=== PATIENT | female | born 1990 | race Caucasian/White ===

== ENCOUNTER 2019-08-03 14:55 | Inpatient (IN) | payer OTHER ==
[~2019-08-03] VITALS: Ht 165.1 cm; Wt 76.2 kg
--- NOTE | 2019-08-03 16:13 | PR ---
[facility] [address] [place], [place] [address] Signed Progress Notes IP Datetime Report Generated by CPKarla: 08/03/2019 16:13 PROGRESS NOTES: [id number] Impression: Gest. HTN/PreEclampsia/Eclampsia Other Impressions: Oligohydramnios Procedures: Sterile Vag Exam Plan: Continue present management VITAL SIGNS: [id number] Vital Signs: Reviewed VS Notable Details: Severe range BPs improved EXAM: [id number] Dilatation: 1.5 Effacement: 60 Station: -3 Uterine Contractions: rare MEMBRANES: [id number] Membrane Status: Intact Comments: Pt seen and examined. Normal pelvic exam with normal / adequate pelvic outlet. No lesions, bleeding, or abnormal discharge. BPs improved s/p dose of Labetalol 40mg IV. Magnesium infusing. Pt denies LAMA, RUQ pain, or visual changes. US shows EFW 8#10 3899g, as well as oligohydramnios w/ LILIA 3.33cm and max vertical pocket 2.3cm. Pt not in active labor, with unfavorable cervix. Will continue sabilization and will discuss options for route of delivery. Fetus A: [id number] FHR Baseline: 120 Variability: Moderate 6-25bpm Accelerations: 15X15 Decelerations: None FHR Category: Category I Presentation: Vertex Comments on Fetus A: No evidence of metabolic acidosis Fetus B: [id number] Signing Physician: Ruchi Bonner DO Copies: ~ *Electronically Signed* 08/03/19 7501 RUCHI BONNER DO PATIENT NAME: MIMA SALEH PROGRESS NOTE DATE OF : 90 PHYSICIAN: RUCHI BONNER DO RPT #: [id number] REPORT IS CONFIDENTIAL AND NOT TO BE RELEASED WITHOUT AUTHORIZATION
--- NOTE | 2019-08-03 17:10 | PR ---
[facility] [address] [place], [place] [address] Signed Progress Notes IP Datetime Report Generated by MARIELA: 08/03/2019 17:10 PROGRESS NOTES: [id number] Impression: Gest. 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 Doing well. No LAMA, RUQ pain, or visual changes. No severe range BPs since last dose of labetalol. Pt tolerating magnesium well. Reviewed options for proceeding with delivery including trial of labor vs . Reviewed US findings including EFW, oligohydramnios, and vertex position. Recommended trial of vaginal delivery. FHT shows overall reassuring FHT but baseline has decreased since initation of mag. Recommended contraction stress prior to induction w/ cytotec. Pt understands and agrees. Fetus A: [id number] FHR Baseline: 110 Variability: Moderate 6-25bpm Accelerations: 15X15 Decelerations: None FHR Category: Category II Presentation: Vertex Comments on Fetus A: No evidence of metabolic acidosis Fetus B: [id number] Signing Physician: Ruchi D. Bonner, DO *Electronically Signed* 08/03/19 1710 BONNER,RUCHI Main DO PATIENT NAME: MIMA SALEH PROGRESS NOTE DATE OF : 90 PHYSICIAN: RUCHI BONNER DO RPT #: [id number] REPORT IS CONFIDENTIAL AND NOT TO BE RELEASED WITHOUT AUTHORIZATION [address] [place] [address] Signed Copies: ~ *Electronically Signed* 08/03/191709 BONNER,RUCHI Main DO PATIENT NAME: MIMA SALEH PROGRESS NOTE DATE OF : 90 PHYSICIAN: RUCHI BONNER DO RPT #: [id number] REPORT IS CONFIDENTIAL AND NOT TO BE RELEASED WITHOUT AUTHORIZATION
--- NOTE | 2019-08-03 18:57 | PR ---
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 Discussed results and recommended trial of vaginal delivery. Pt understands and agrees. Will proceed with cervical ripening IOL. Reviewed labs that demonstrate Pro/Creat ratio 0.9 c/w PreE with severe features. Normal AST/ALT, uric acid, Plts 217. Serum creat 0.69. Start cytotec per protocol Fetus A: [id number] FHR Baseline: 115 Variability: Moderate 6-25bpm Accelerations: 15X15 Decelerations: None FHR Category: Category I Presentation: Vertex Comments on Fetus A: No evidence of metabolic acidosis Fetus B: [id number] Signing Physician: Ruchi Bonner DO Copies: *Electronically Signed* 08/03/19 3000 RUCHI BONNER DO PATIENT NAME: MIMA SALEH PROGRESS NOTE DATE OF : 90 PHYSICIAN: RUCHI BONNER DO RPT #: [id number] REPORT IS CONFIDENTIAL AND NOT TO BE RELEASED WITHOUT AUTHORIZATION [address] [address] Signed ~ *Electronically Signed* 08/03/19 1857 RUCHI BONNER DO PATIENT NAME: MIMA SALEH PROGRESS NOTE DATE OF : 90 PHYSICIAN: RUCHI BONNER DO RPT #: [id number] REPORT IS CONFIDENTIAL AND NOT TO BE RELEASED WITHOUT AUTHORIZATION
--- NOTE | 2019-08-04 00:34 | PR ---
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 BPs well controlled and FHT reassuring. Pt resting comfortably. Prior LAMA has resolved with tylenol. Continue cervical ripening. Fetus A: [id number] FHR Baseline: 120 Variability: Minimal - Undetectable to <5bpm Accelerations: None Decelerations: None FHR Category: Category II Presentation: Vertex Comments on Fetus A: No evidence of metabolic acidosis Fetus B: [id number] Signing Physician: Ruchi Bonner DO Copies: ~ *Electronically Signed* 08/04/19 0033 RUCHI BONNER DO PATIENT NAME: MIMA SALEH PROGRESS NOTE DATE OF : 90 PHYSICIAN: RUCHI BONNER DO RPT #: [id number] REPORT IS CONFIDENTIAL AND NOT TO BE RELEASED WITHOUT AUTHORIZATION
--- NOTE | 2019-08-04 08:34 | PR ---
[facility] [address] [place], [place] [address] Signed Progress Notes IP Datetime Report Generated by MARIELA: 08/04/2019 08:34 PROGRESS NOTES: [id number] Impression: Reassuring heart rate; Gest. 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 SROM _1:30am with ctxs increasing in frequency and intensity. Pt requested epidural that was kindly placed by anesthesia. Pt now very comfortable w/ epidural in place. Slow progress noted and ctxs became more irregular, and low dose pitocin was started per protocol. Pt has now developed hypotension and c/o feeling somewhat lightheaded. FHT reassuring. Pt was given ephedrine 20mg IV with some improvement of BPs and symptoms. Discussed IUPC to help monitor augementation of labor with pitocin and patient consents. Sterile cervical exam performed and a large gush of clear amniotic fluid noted, possibly from a residual forebag. IUPC then placed without difficulty. Scalp stim resulted in acceleration. Will continue to monitor BPs closely. Pt denies LAMA, RUQ, or visual changes. Most recent labs normal and Magnesium therapeutic. HepC and HIV negative. All questions answered to best of my ability and to patient's apparent satisfaction. Fetus A: [id number] FHR Baseline: 110 Variability: Moderate 6-25bpm Accelerations: 15X15 Decelerations: None *Electronically Signed* 08/04/19833 RUCHI BONNER DO PATIENT NAME: MIMA SALEH PROGRESS NOTE DATE OF : 90 PHYSICIAN: RUCHI BONNER DO RPT #: [id number] REPORT IS CONFIDENTIAL AND NOT TO BE RELEASED WITHOUT AUTHORIZATION [facility] [address] [place], [place] [address] Signed FHR Category: Category I Presentation: Vertex Comments on Fetus A: No evidence of metabolic acidosis. Acceleration noted to sclap stim at time of IUPC placement Fetus B: [id number] Signing Physician: Ruchi Bonner DO Copies: ~ *Electronically Signed* 08/04/1934 RUCHI BONNER DO PATIENT NAME: MIMA SALEH PROGRESS NOTE DATE OF : 90 PHYSICIAN: RUCHI BONNER DO RPT #: [id number] REPORT IS CONFIDENTIAL AND NOT TO BE RELEASED WITHOUT AUTHORIZATION
--- NOTE | 2019-08-04 08:37 | PR ---
[facility] [address] [place], [place] [address] Signed Progress Notes IP Datetime Report Generated by MARIELA: 08/04/2019 08:37 PROGRESS NOTES: [id number] Impression: Reassuring heart rate; Gest. 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 Pitocin has not yet been started. Will start low dose pit per protocol for labor augmentation. Fetus A: [id number] FHR Baseline: 110 Variability: Moderate 6-25bpm Accelerations: 15X15 Decelerations: None FHR Category: Category I Presentation: Vertex Comments on Fetus A: No evidence of metabolic acidosis. Acceleration noted to sclap stim at time of IUPC placement Fetus B: [id number] Signing Physician: Ruchi Bonner DO Copies: *Electronically Signed* 08/04/19 0837 RUCHI BONNER DO PATIENT NAME: MIMA SALEH PROGRESS NOTE DATE OF : 90 PHYSICIAN: RUCHI BONNER DO RPT #: [id number] REPORT IS CONFIDENTIAL AND NOT TO BE RELEASED WITHOUT AUTHORIZATION [facility] [address] [place] [address] Signed ~ *Electronically Signed* 08/04/19 0837 RUCHI BONNER DO PATIENT NAME: MIMA SALEH PROGRESS NOTE DATE OF : 90 PHYSICIAN: RUCHI BONNER DO RPT #: [id number] REPORT IS CONFIDENTIAL AND NOT TO BE RELEASED WITHOUT AUTHORIZATION
--- NOTE | 2019-08-04 10:12 | PR ---
[facility] [address] [place], [place] [address] Signed Progress Notes IP Datetime Report Generated by MARIELA: 08/04/2019 10:12 PROGRESS NOTES: [id number] Impression: Reassuring heart rate; Gest. 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 Resting comfortably. Reviewed recent labs that confirm therapeutic magnesium levels and stable serologies. CTXs continue to be inadequate and pt is on low dose pitocin per protocol. FHT reassuring. All questions answered. Fetus A: [id number] FHR Baseline: 120 Variability: Moderate 6-25bpm Accelerations: None Decelerations: None FHR Category: Category I Presentation: Vertex Comments on Fetus A: No evidence of metabolic acidosis Fetus B: [id number] Signing Physician: Ruchi Bonner DO Copies: *Electronically Signed* 08/04/19 1012 RUCHI BONNER DO PATIENT NAME: MIMA SALEH PROGRESS NOTE DATE OF : 90 PHYSICIAN: RUCHI BONNER DO RPT #: [id number] REPORT IS CONFIDENTIAL AND NOT TO BE RELEASED WITHOUT AUTHORIZATION [address] [place], [place] [address] Signed ~ *Electronically Signed* 08/04/19 1012 RUCHI BONNER DO PATIENT NAME: MIMA SALEH PROGRESS NOTE DATE OF : 90 PHYSICIAN: RUCHI BONNER DO RPT #: [id number] REPORT IS CONFIDENTIAL AND NOT TO BE RELEASED WITHOUT AUTHORIZATION
--- NOTE | 2019-08-04 11:11 | PR ---
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 Doing well. No complaints. Contractions irregular but cervical change noted and station much lower. Will continue w/ pit per protocol and anticipate . BPs improved. All questions answered Fetus A: [id number] FHR Baseline: 150 Variability: Moderate 6-25bpm Accelerations: 10X10 Decelerations: Variable FHR Category: Category II Presentation: Vertex Comments on Fetus A: No evidence of metabolic acidosis Fetus B: [id number] Signing Physician: Ruchi Bonner DO Copies: *Electronically Signed* 08/04/19 1111 RUCHI BONNER DO PATIENT NAME: MIMA SALEH PROGRESS NOTE DATE OF : 90 PHYSICIAN: RUCHI BONNER DO RPT #: [id number] REPORT IS CONFIDENTIAL AND NOT TO BE RELEASED WITHOUT AUTHORIZATION [facility] [address] [place] [address] Signed ~ *Electronically Signed* 08/04/19 [facility] RUCHI BONNER DO PATIENT NAME: MIMA SALEH PROGRESS NOTE DATE OF : 90 PHYSICIAN: RUCHI BONNER DO RPT #: [id number] REPORT IS CONFIDENTIAL AND NOT TO BE RELEASED WITHOUT AUTHORIZATION
--- NOTE | 2019-08-04 15:16 | PR ---
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 Doing well. Comfortable w/ ctxs. BPs now 140s systolic. No LAMA, RUQ pain, or visual changes. Neuro exams normal per RN. Now 9cm. Anticipate soon. All questions answered Fetus A: [id number] FHR Baseline: 120 Variability: Moderate 6-25bpm Accelerations: 15X15 Decelerations: None FHR Category: Category I Presentation: Vertex Comments on Fetus A: No evidence of metabolic acidosis Fetus B: [id number] Signing Physician: Ruchi Bonner DO Copies: *Electronically Signed* 08/04/19 1516 RUCHI BONNER DO PATIENT NAME: MIMA SALEH PROGRESS NOTE DATE OF : 90 PHYSICIAN: RUCHI BONNER DO RPT #: [id number] REPORT IS CONFIDENTIAL AND NOT TO BE RELEASED WITHOUT AUTHORIZATION [address] [place], [place] [address] Signed ~ *Electronically Signed* 08/04/19 1516 RUCHI BONNER DO PATIENT NAME: MIMA SALEH PROGRESS NOTE DATE OF : 90 PHYSICIAN: RUCHI BONNER DO RPT #: [id number] REPORT IS CONFIDENTIAL AND NOT TO BE RELEASED WITHOUT AUTHORIZATION
--- NOTE | 2019-08-04 16:28 | PR ---
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 Re EXAM: [id number] Dilatation: 10.0 Effacement: 100 Station: 2 Uterine Contractions: q 2 minutes MEMBRANES: [id number] Membrane Status: Ruptured Amniotic Fluid Color: Clear Comments: Pt seen and examined. Pt c/o feeling tired and weak. She reports having "no energy" and being unable to "focus my eyes or even open them." Denies blurry vision. No chest pain or difficulty breathing. C/O low back pain, but denies contraction pain or pelvic pressure. Regular breathing effort and normal sats. HR normal. Heart sounds normal, and lungs are clear to ascultation bilaterally. UE reflexes 3+, but patellar reflexes now absent. Urine output has been somewhat diminished, and urine output in last hour is 25. Mag stopped and mag level ordered stat. Will hold calcium gluconate at this time. Pt now 10cm and +2 station. Will proceed with . Fetus A: [id number] FHR Baseline: 115 Variability: Moderate 6-25bpm Accelerations: 15X15 Decelerations: None FHR Category: Category I Presentation: Vertex Comments on Fetus A: No evidence of metabolic acidosis Fetus B: [id number] Signing Physician: Ruchi Bonner DO *Electronically Signed* 08/04/191627 RUCHI BONNER DO PATIENT NAME: MIMA SALEH PROGRESS NOTE DATE OF : 90 PHYSICIAN: RUCHI BONNER DO RPT #: [id number] REPORT IS CONFIDENTIAL AND NOT TO BE RELEASED WITHOUT AUTHORIZATION [address] [address] Signed Copies: ~ *Electronically Signed* 08/04/191627 RUCHI BONNER DO PATIENT NAME: MIMA SALEH PROGRESS NOTE DATE OF : 90 PHYSICIAN: RUCHI BONNER DO RPT #: [id number] REPORT IS CONFIDENTIAL AND NOT TO BE RELEASED WITHOUT AUTHORIZATION
--- NOTE | 2019-08-05 09:02 | PR ---
[facility] [address] [facility] [place], [place] [address] Signed PP Progress Notes Datetime Report Generated by CPKarla: 08/05/2019 09:02 SUBJECTIVE: [id number] Pain: Within normal limits Nausea/Vomiting: Denies Flatus: Yes Bowel Movement: No Vital Signs: M2382888 Vital Signs: Reviewed Notable Details: Afebrile this AM. normal HR. BPs not severe. Last febrile temp 100.8 @ 23:57. Tmax 102.0 followed 7 minutes later by 99.7 EXAM: [id number] Cardiovascular: Normal Respiratory: Normal Abdomen/Uterus: Normal Lochia: Normal Vulva/Perineum: Not Done Breasts: Not Done CVA Tenderness: Normal Extremities: Normal Incision: Not Applicable Progress: Not Applicable Exam Comments: Fundus firm U-2 nontender. Pt sitting up in chair in no apparent distress in apparent good health. Improved edema. No increased work of breathing IMPRESSION/PLAN/PROCEDURES: [id number] Progress Notes: Pt seen and examined. Pt appears to be much improved. Magnesium was d/c'd last night and not restarted. Pt was febrile last night but afebrile this morning and in no apparent distress. Exam normal. Awaiting AM labs. Lactic acid added. Signing Physician: Ruchi Bonner DO Copies: ~ *Electronically Signed* 08/05/19 09 RUCHI BONNER DO PATIENT NAME: MIMA MARCOS PROGRESS NOTE DATE OF : 90 PHYSICIAN: RUCHI BONNER DO RPT #: [id number] REPORT IS CONFIDENTIAL AND NOT TO BE RELEASED WITHOUT AUTHORIZATION
--- NOTE | 2019-08-05 10:13 | PR ---
[facility] [address] [place], [place] [address] Signed PP Progress Notes Datetime Report Generated by MARIELA: 08/05/2019 10:12 SUBJECTIVE: [id number] Pain: Within normal limits Nausea/Vomiting: Denies Flatus: Yes Bowel Movement: No Vital Signs: [id number] Vital Signs: Reviewed Notable Details: No severe range BPs, Continued afebrile EXAM: [id number] Cardiovascular: Normal Respiratory: Normal Abdomen/Uterus: Normal Lochia: Normal Vulva/Perineum: Normal Breasts: Not Done CVA Tenderness: Normal Extremities: Normal Incision: Not Applicable Progress: Not Applicable Exam Comments: Fundus again firm U-2 nontender. Bleeding normal with no malodorous discharge. Bimanual exam normal. Lungs clear and heart sounds normal. No obvious source of infection IMPRESSION/PLAN/PROCEDURES: [id number] Impression: Endometritis Plan: Antibiotic therapy Progress Notes: Pt again reports she is doing very well. No fevers/chills/pain. Bleeding light. Feeling much improved. Reviewed labs; Pt again w/ severely elevated WBC's. Lactic acid normal. Continued hyponatremia. Given fevers yesterday, continued leukocytosis, and no obvious source of infection, we will start antibiotic therapy with Amp / Gent / Clinda. Will restart Mag sulfate @ 1.5g / hr and plan to continue that until 24 hrs pp. Will continue cbc / cmp's q 8 hrs. Blood cultures will be drawn prior to abx therapy. Reviewed plan of care with patient. Also will consult internal medicine RE hyponatremia. Signing Physician: Ruchi Bonner DO Copies: *Electronically Signed* 08/05/19 1012 RUCHI BONNER DO PATIENT NAME: MIMA MARCOS PROGRESS NOTE DATE OF : 90 PHYSICIAN: RUCHI BONNER DO RPT #: [id number] REPORT IS CONFIDENTIAL AND NOT TO BE RELEASED WITHOUT AUTHORIZATION [address] [place] [address] Signed ~ *Electronically Signed* 08/05/191011 RUCHI BONNER DO PATIENT NAME: MIMA MARCOS PROGRESS NOTE DATE OF : 90 PHYSICIAN: RUCHI BONNER DO RPT #: [id number] REPORT IS CONFIDENTIAL AND NOT TO BE RELEASED WITHOUT AUTHORIZATION
--- NOTE | 2019-08-05 14:13 | PR ---
[facility] [address] [place], [place] [address] Signed PP Progress Notes Datetime Report Generated by MARIELA: 08/05/2019 14:13 SUBJECTIVE: [id number] Pain: Within normal limits Nausea/Vomiting: Denies Flatus: Yes Bowel Movement: No Vital Signs: [id number] Vital Signs: Reviewed Notable Details: Tachycardia 110's EXAM: [id number] Cardiovascular: Normal Respiratory: Normal Abdomen/Uterus: Normal Lochia: Normal Vulva/Perineum: Not Done Breasts: Not Done CVA Tenderness: Normal Extremities: Normal Incision: Not Applicable Progress: Not Applicable Exam Comments: Fundus firm nontender. Pt warm to the touch. Heart/lungs normal. Bilateral lower back paraspinal tenderness but no flank pain or tenderness to percussion. No cough, increased work or breathing. Large amount of clear yellow urine in luu cath IMPRESSION/PLAN/PROCEDURES: [id number] Impression: Endometritis Plan: Antibiotic therapy Progress Notes: Pt seen and examined. Pt became irritable and refused IV antibiotics from RN. I presented to room to discuss plan of care with patient. Pt with increased fever and heart rate. Excellent urine output. No LAMA, RUQ pain, or visual changes. No cough, chest pain, shortness of breath. Pt attributes symptoms to resumption of magnesium sulfate. Discussed side effects of magnesium and indications. Reviewed pt 21 hrs post delivery with now significant diuresis. Will stop magnesium. Pt agrees to continue IV abx as planned. All questions answered to best of my ability and to patient's apparent satisfaction. Continue NS but increase to 125cc/hr. Will monitor urine output and vitals closely. Signing Physician: Ruchi Bonner DO *Electronically Signed* 08/05/19 1413 RUCHI BONNER DO PATIENT NAME: MIMA MARCOS PROGRESS NOTE DATE OF : 90 PHYSICIAN: RUCHI BONNER DO RPT #: [id number] REPORT IS CONFIDENTIAL AND NOT TO BE RELEASED WITHOUT AUTHORIZATION [facility] [address] [place], [place] [address] Signed Copies: ~ *Electronically Signed* 08/05/19 1413 RUCHI BONNER DO PATIENT NAME: MIMA MARCOS PROGRESS NOTE DATE OF : 90 PHYSICIAN: RUCHI BONNER DO RPT #: [id number] REPORT IS CONFIDENTIAL AND NOT TO BE RELEASED WITHOUT AUTHORIZATION
--- NOTE | 2019-08-05 21:08 | PR ---
[facility] [address] [place], [place] [address] Signed PP Progress Notes Datetime Report Generated by MARIELA: 08/05/2019 21:08 SUBJECTIVE: [id number] Pain: Within normal limits Nausea/Vomiting: Denies Flatus: Yes Bowel Movement: No Vital Signs: [id number] Vital Signs: Reviewed; Within Normal Limits Notable Details: Last fever of 101.5 @ 13:15 EXAM: [id number] Cardiovascular: Normal Respiratory: Normal Abdomen/Uterus: Normal Lochia: Not Done Vulva/Perineum: Not Done Breasts: Not Done CVA Tenderness: Normal Extremities: Abnormal Incision: Not Applicable Progress: Not Applicable Exam Comments: Fundus firm U-2 nontender, Tachycardic, but heart and lung sounds otherwise normal. Legs with stable bilateral edema. IMPRESSION/PLAN/PROCEDURES: [id number] Impression: Endometritis Plan: Antibiotic therapy Progress Notes: Called back to patient's room as patient has been refusing vitals, labs, medicines, and evaluation by RN. Pt sitting on couch appearing comfortable with luu cath in place. Large amount of dilute urine noted. Pt in no acute distress. Reviewed current clinical scenario including improved leukocytosis, excellent urine output, and normal CXR. Reviewed elevated lactic acid and tachycardia which can be signs of sepsis. Discussed that although patient might be feeling significantly improved, she still is septic. Discussed the importance and reasons why monitoring, assessments including labs, and medications are required. Discussed that we may be able to condense labs into one nighttime and one morning draw. Pt agrees to this plan. Will start oral iron, increase diet to full, continue luu cath, and continue Abx until at least 24 hrs afebrile. Discussed acute blood loss anemia, and though while patient denies symptoms other than tachycardia, indications for iron replacement and possible blood transfusion. Pt understands and agrees. She feels that we are *Electronically Signed* 08/05/192107 RUCHI BONNER DO PATIENT NAME: HEMANTMIMA PROGRESS NOTE DATE OF : 90 PHYSICIAN: RUCHI BONNER DO RPT #: [id number] REPORT IS CONFIDENTIAL AND NOT TO BE RELEASED WITHOUT AUTHORIZATION [facility] [address] [place] [id number] Signed listening to her concerns and appreciates the thoroughness and quality of our care. Signing Physician: Ruchi Bonner DO Copies: ~ *Electronically Signed* 08/05/192107 RUCHI BONNER DO PATIENT NAME: MIMA MARCOS PROGRESS NOTE DATE OF : 90 PHYSICIAN: RUCHI BONNER DO RPT #: [id number] REPORT IS CONFIDENTIAL AND NOT TO BE RELEASED WITHOUT AUTHORIZATION
--- NOTE | 2019-08-05 23:49 | PR ---
[facility] [facility] [address] [place], [place] [address] Signed PP Progress Notes Datetime Report Generated by MARIELA: 08/05/2019 23:49 SUBJECTIVE: [id number] Pain: Within normal limits Nausea/Vomiting: Denies Flatus: Yes Bowel Movement: No Vital Signs: [id number] Vital Signs: Reviewed Notable Details: Afebrile, most recent HR 93. EXAM: [id number] Cardiovascular: Normal Respiratory: Normal Abdomen/Uterus: Normal Lochia: Not Done Vulva/Perineum: Not Done Breasts: Not Done CVA Tenderness: Normal Extremities: Abnormal Incision: Not Applicable Progress: Not Applicable Exam Comments: Pt refuses physical exam. Pt sitting comfortably on couch with boyfriend. No increased work of breathing. Pt agitated IMPRESSION/PLAN/PROCEDURES: [id number] Impression: Endometritis Other Impression: Acute blood loss anemia Plan: Antibiotic therapy Progress Notes: Pt seen and evaluated. Pt w/ Hgb 6.6. LFTs normal and Plts 146. Lactic acid improved at 2.5. WBCs 31. Continued good urine output. Recommended blood transfusion. Pt and boyfriend became very angry and are threatening to leave AMA. Pt states that "I am 29 yrs old and am healthy." Reviewed preeclampsia w/ pp blood loss, acute blood loss anemia, and sepsis / endometritis. Discussed improvements in patient's clinical picture with interventions. Pt and boyfriend continued to be very upset and he states "I think you are practicing malpractice." Offered to have Dr. Walker or Dr. Mathur provide second opinion. Pt is requesting her friend to be present to review and will not make decisions until she is present. Signing Physician: Ruchi Bonner DO *Electronically Signed* 08/05/199 RUCHI BONNER DO PATIENT NAME: HEMANTMIMA PROGRESS NOTE DATE OF : 90 PHYSICIAN: RUCHI BONNER DO RPT #: [id number] REPORT IS CONFIDENTIAL AND NOT TO BE RELEASED WITHOUT AUTHORIZATION [address] [place], [place] [address] Signed Copies: ~ *Electronically Signed* 08/05/19 2349 RUCHI BONNER DO PATIENT NAME: MIMA MARCOS PROGRESS NOTE DATE OF : 90 PHYSICIAN: RUCHI BONNER DO RPT #: [id number] REPORT IS CONFIDENTIAL AND NOT TO BE RELEASED WITHOUT AUTHORIZATION
--- NOTE | 2019-08-05 23:50 | PR ---
[facility] [address] [place], [place] [address] Signed PP Progress Notes Datetime Report Generated by MARIELA: 08/05/2019 23:50 SUBJECTIVE: [id number] Pain: Within normal limits Nausea/Vomiting: Denies Flatus: Yes Bowel Movement: No Vital Signs: [id number] Vital Signs: Reviewed Notable Details: Afebrile, most recent HR 93. EXAM: [id number] Cardiovascular: Normal Respiratory: Normal Abdomen/Uterus: Normal Lochia: Not Done Vulva/Perineum: Not Done Breasts: Not Done CVA Tenderness: Normal Extremities: Abnormal Incision: Not Applicable Progress: Not Applicable Exam Comments: Pt refuses physical exam. Pt sitting comfortably on couch with boyfriend. No increased work of breathing. Pt agitated IMPRESSION/PLAN/PROCEDURES: [id number] Impression: Endometritis Other Impression: Acute blood loss anemia Plan: Antibiotic therapy Progress Notes: Pt seen and evaluated. Pt w/ Hgb 6.6. LFTs normal and Plts 146. Lactic acid improved at 2.5. WBCs 31. Continued good urine output. Recommended blood transfusion. Pt and boyfriend became very angry and are threatening to leave AMA. Pt states that "I am 29 yrs old and am healthy." Reviewed preeclampsia w/ pp blood loss, acute blood loss anemia, and sepsis / endometritis. Discussed risks of leaving AMA including severe anemia, worsening sepsis, or . Discussed improvements in patient's clinical picture with interventions. Pt and boyfriend continued to be very upset and he states "I think you are practicing malpractice." Offered to have Dr. Walker or Dr. Mathur provide second opinion. Pt is requesting her friend to be present to review and will not make decisions until she is present. Signing Physician: Ruchi Bonner DO *Electronically Signed* 08/05/192349 RUCHI BONNER DO PATIENT NAME: HEMANTMIMA PROGRESS NOTE DATE OF : 90 PHYSICIAN: RUCHI BONNER DO RPT #: [id number] REPORT IS CONFIDENTIAL AND NOT TO BE RELEASED WITHOUT AUTHORIZATION [facility] [address] [place] [id number] Signed Copies: ~ *Electronically Signed* 08/05/192349 RUCHI BONNER DO PATIENT NAME: SYLVESTER MARCOSNDRIA PROGRESS NOTE DATE OF : 90 PHYSICIAN: RUCHI BONNER DO RPT #: [id number] REPORT IS CONFIDENTIAL AND NOT TO BE RELEASED WITHOUT AUTHORIZATION
--- NOTE | 2019-08-06 00:27 | PR ---
[facility] [address] [place], [place] [address] Signed PP Progress Notes Datetime Report Generated by CPKarla: 08/06/2019 00:27 SUBJECTIVE: [id number] Pain: Within normal limits Nausea/Vomiting: Denies Flatus: Yes Bowel Movement: No Vital Signs: [id number] Vital Signs: Reviewed Notable Details: Afebrile, most recent HR 93. EXAM: [id number] Cardiovascular: Normal Respiratory: Normal Abdomen/Uterus: Normal Lochia: Not Done Vulva/Perineum: Not Done Breasts: Not Done CVA Tenderness: Normal Extremities: Abnormal Incision: Not Applicable Progress: Not Applicable Exam Comments: Pt refuses physical exam. Pt sitting comfortably on couch with boyfriend. No increased work of breathing. Pt agitated IMPRESSION/PLAN/PROCEDURES: [id number] Impression: Endometritis Other Impression: Acute blood loss anemia Plan: Antibiotic therapy Progress Notes: Pt's friend Lori presented. Patient and her friend talked and patient now desires blood transfusion. We reviewed course of care and patient agrees to IV abx and laboratories as ordered. Will continue with plan of care. Pt desires nicotine patch. Signing Physician: Ruchi Bonner DO Copies: ~ *Electronically Signed* 08/06/19 0027 RUCHI BONNER DO PATIENT NAME: MIMA MARCOS PROGRESS NOTE DATE OF : 90 PHYSICIAN: RUCHI BONNER DO RPT #: [id number] REPORT IS CONFIDENTIAL AND NOT TO BE RELEASED WITHOUT AUTHORIZATION
--- NOTE | 2019-08-06 10:10 | PR ---
[facility] [facility] [address] [facility] [place], [place] [address] Signed PP Progress Notes Datetime Report Generated by MARIELA: 08/06/2019 10:10 SUBJECTIVE: [id number] Pain: Within normal limits Nausea/Vomiting: Denies Flatus: Yes Bowel Movement: No Vital Signs: [id number] Vital Signs: Reviewed Notable Details: Labile BPs this AM. EXAM: [id number] Cardiovascular: Normal Respiratory: Normal Abdomen/Uterus: Normal Lochia: Not Done Vulva/Perineum: Not Done Breasts: Not Done CVA Tenderness: Not Done Extremities: Abnormal Incision: Not Applicable Progress: Not Applicable Exam Comments: Pt laying on couch. Pt again quite irritable, but in no apparent distress. Concepcion draining clear yellow urine. Fundus firm. LE w/ stable bilateral edema. IMPRESSION/PLAN/PROCEDURES: [id number] Impression: Endometritis; Induced Hypertension Other Impression: Acute blood loss anemia Plan: Continue present management; Antibiotic therapy Progress Notes: Pt seen and evaluated. Reviewed improvement of labs s/p transfusion 2u PRBC. WBCs dec to 28.4, Hgb improved to 7.8 up from 6.6. Lactate resolved and now 1.3. LFTS normal, Creat 0.91, and sodium normal @ 136. Pt afebrile since 08/05/19 @ 13:15. Pt ambulating and tolerating full diet. Pain and lochia minimal. Bottlefeeding. Pt denies fevers this AM. Pt again irritable. Boyfriend was removed by security earlier this AM after getting in verbal confrontation w/ patient and RN. Pt requesting to "go outside for some fresh air" and again becomes angry when hospital policy explained. Discussed the importance of continued medical care and reviewed the clinical improvement she has shown. Reviewed preE and importance of close BP monitoring and control. Pt did have labile BPs this AM that are now improved w/ Procardia XL 30mg PO daily. Pt understands and agrees. Continue abx until pt *Electronically Signed* 08/06/19 1010 RUCHI BONNER DO PATIENT NAME: MIMA MARCOS PROGRESS NOTE DATE OF : 90 PHYSICIAN: RUCHI BONNER DO RPT #: [id number] REPORT IS CONFIDENTIAL AND NOT TO BE RELEASED WITHOUT AUTHORIZATION [facility] [address] [facility] [place] [address] Signed afebrile for 24 hrs. Repeat CBC and CMP in AM. All questions answered. Signing Physician: Ruchi Bonner DO Copies: ~ *Electronically Signed* 08/06/19 1010 RUCHI BONNER DO PATIENT NAME: MIMA MARCOS PROGRESS NOTE DATE OF : 90 PHYSICIAN: RUCHI BONNER DO RPT #: [id number] REPORT IS CONFIDENTIAL AND NOT TO BE RELEASED WITHOUT AUTHORIZATION
--- NOTE | 2019-08-07 10:11 | PR ---
[facility] [address] [place], [place] [address] Signed PP Progress Notes Datetime Report Generated by MARIELA: 08/07/2019 10:11 SUBJECTIVE: [id number] Pain: Within normal limits Nausea/Vomiting: Denies Flatus: Yes Bowel Movement: No Vital Signs: [id number] Vital Signs: Reviewed Notable Details: Labile BPs this AM. EXAM: [id number] Cardiovascular: Normal Respiratory: Normal Abdomen/Uterus: Abnormal Lochia: Normal Vulva/Perineum: Not Done Breasts: Not Done CVA Tenderness: Normal Extremities: Abnormal Incision: Not Applicable Progress: Not Applicable Exam Comments: Fundus firm U-2. Abd distended and tympanic. Normal bowel tones. No rebound or guarding and nontender. Extremities w/ stable bilateral edema. IMPRESSION/PLAN/PROCEDURES: [id number] Impression: Normal progression Other Impression: Acute blood loss anemia Plan: Continue present management Progress Notes: Pt seen and examined. Doing well. Ambulating and tolerating full diet. Bottlefeeding. Denies fevers/chills or other complaints. Afebrile since yesterday _1300. AM labs show improved WBCs no 20.0, Hgb 7.2 s/p 2u PRBC, and plts 122. Creat improved to 0.73, and LFTs normal. Pt denies LAMA, RUQ pain, or visual changes. No lightheadedness or dizziness. Good urine output. Pt did have severe range BPs overnight that required treatment w/ IV labetalol (20, 40, 80, and 80mg IV). Pt received additional dose of procardia XL 30mg. Will give Procardia XL 60mg daily. Will keep inpatient to monitor BPs and anemia. D/C abxs this afternoon. Reviewed plan of care w/ pt. All questions answered. Signing Physician: Ruchi Bonner DO *Electronically Signed* 08/07/19 1011 RUCHI BONNER DO PATIENT NAME: HEMANTMIMA PROGRESS NOTE DATE OF : 90 PHYSICIAN: RUCIH BONNER DO RPT #: [id number] REPORT IS CONFIDENTIAL AND NOT TO BE RELEASED WITHOUT AUTHORIZATION [address] [address] Signed Copies: ~ *Electronically Signed* 08/07/19 101 RUCHI BONNER DO PATIENT NAME: SYLVESTER MARCOSNDRIA PROGRESS NOTE DATE OF : 90 PHYSICIAN: RUCHI BONNER DO RPT #: [id number] REPORT IS CONFIDENTIAL AND NOT TO BE RELEASED WITHOUT AUTHORIZATION
--- NOTE | 2019-08-07 16:29 | PR ---
[facility] [address] [place], [place] [address] Signed PP Progress Notes Datetime Report Generated by MARIELA: 08/07/2019 16:29 SUBJECTIVE: [id number] Pain: Within normal limits Pain Comments: Breast tenderness Nausea/Vomiting: Denies Flatus: Yes Bowel Movement: No Vital Signs: [id number] Vital Signs: Reviewed Notable Details: Severe range BPs EXAM: [id number] Cardiovascular: Normal Respiratory: Normal Abdomen/Uterus: Normal Lochia: Normal Vulva/Perineum: Not Done Breasts: Not Done CVA Tenderness: Normal Extremities: Abnormal Incision: Not Applicable Progress: Not Applicable Exam Comments: Fundus Firm U-2 nontender. Stable bilateral LE edema. C/O breast tenderness w/ heart/lung exam. IMPRESSION/PLAN/PROCEDURES: [id number] Impression: Endometritis; Induced Hypertension Other Impression: Acute blood loss anemia Plan: Continue present management Progress Notes: Pt again febrile this afternoon following d/c IV abx (amp/gent/clinda); previous fever was yesterday @ 13:15. Pt states that she "feels much better." Did complain of some shortness of breath earlier today. Normal sats, and no increased dyspnea on exertion. Will check ECHO, EKG, CT angiogram. Possible fever could be caused by engorgement; pt is not . Blood cultures collected 08/05/19 are still pending. Will review case w/ internal medicine and w/ Dr. Cisse. Signing Physician: Ruchi Bonner DO Copies: *Electronically Signed* 08/07/19 1629 BONNER,RUCHI Main DO PATIENT NAME: MIMA MARCOS PROGRESS NOTE DATE OF : 90 PHYSICIAN: RUCHI BONNER DO RPT #: [id number] REPORT IS CONFIDENTIAL AND NOT TO BE RELEASED WITHOUT AUTHORIZATION [facility] [address] [place] [address] Signed ~ *Electronically Signed* 08/07/19 1629 BONNER,RUCHI Main DO PATIENT NAME: MIMA MARCOS PROGRESS NOTE DATE OF : 90 PHYSICIAN: BONNERRUCHI DO RPT #: [id number] REPORT IS CONFIDENTIAL AND NOT TO BE RELEASED WITHOUT AUTHORIZATION
--- NOTE | 2019-08-08 10:11 | PR ---
[facility] [address] [facility] [place], [place] [address] Signed PP Progress Notes Datetime Report Generated by MARIELA: 08/08/2019 10:11 SUBJECTIVE: [id number] Pain: Within normal limits Pain Comments: Breast tenderness Nausea/Vomiting: Denies Flatus: Yes Bowel Movement: No Vital Signs: [id number] Vital Signs: Reviewed Notable Details: Pt w/ additional episodes of severe HTN. Last fever 00:49, Tmax 101.5 EXAM: [id number] Cardiovascular: Normal Respiratory: Normal Abdomen/Uterus: Normal Lochia: Not Done Vulva/Perineum: Not Done Breasts: Not Done CVA Tenderness: Normal Extremities: Abnormal Incision: Not Applicable Progress: Not Applicable Exam Comments: Fundus firm U-2 nontender. Less distended today. No rebound or guarding. IMPRESSION/PLAN/PROCEDURES: [id number] Impression: Endometritis; Induced Hypertension Other Impression: Acute blood loss anemia Plan: Continue present management Progress Notes: Pt seen and examined. Pt doing better. Still complaining of some shortness of breath. ECHO official read still pending, but worksheet shows normal EF. CT angiogram shows no PE, but bilateral pleural effusions. Pt had fever overnight but is now afebrile since 00:49. White count improved. C/O continued engorgement. Pt also did have severe BPs overnight despite continued procardia XL. Plan: Continue Zosyn. Procardia XL 90mg daily. Add labetalol 400mg BID. Lasix 20mg IV now. All questions answered. Reviewed plan of care w/ pt and RN Signing Physician: Ruchi Bonner DO Copies: *Electronically Signed* 08/08/19 101 RUCHI BONNER DO PATIENT NAME: MIMA MARCOS PROGRESS NOTE DATE OF : 90 PHYSICIAN: RUCHI BONNER DO RPT #: [id number] REPORT IS CONFIDENTIAL AND NOT TO BE RELEASED WITHOUT AUTHORIZATION [address] [place], [place] [address] Signed ~ *Electronically Signed* 08/08/19 101 RUCHI BONNER DO PATIENT NAME: MIMA MARCOS PROGRESS NOTE DATE OF : 90 PHYSICIAN: RUCHI BONNER DO RPT #: [id number] REPORT IS CONFIDENTIAL AND NOT TO BE RELEASED WITHOUT AUTHORIZATION
--- NOTE | 2019-08-08 13:03 | EKG ---
[facility] [address] [facility] [place], [place] [address] Signed Normal sinus rhythm Possible Left atrial enlargement Anterior infarct , age undetermined Abnormal ECG No previous ECGs available Confirmed by OSCAR LOWE DO ([id number]) on 08/08/2019 1:02:56 PM Electronically Signed By: OSCAR LOWE DO 08/08/19 1303 PATIENT NAME: MIMA MARCOS Electrocardiogram DATE OF : 90 PHYSICIAN: OSCAR LOWE DO REPORT #: [id number] REPORT IS CONFIDENTIAL AND NOT TO BE RELEASED WITHOUT AUTHORIZATION
--- NOTE | 2019-08-08 18:42 | PR ---
[facility] [address] [facility] [place], [place] [address] Signed PP Progress Notes Datetime Report Generated by MARIELA: 08/08/2019 18:42 SUBJECTIVE: [id number] Pain: Within normal limits Pain Comments: Breast tenderness Nausea/Vomiting: Denies Flatus: Yes Bowel Movement: No Vital Signs: [id number] Vital Signs: Reviewed Notable Details: BPs much improved. Last temp 100.4 @ 1607 this afternoon. EXAM: [id number] Cardiovascular: Normal Respiratory: Normal Abdomen/Uterus: Normal Lochia: Normal Vulva/Perineum: Not Done Breasts: Not Done CVA Tenderness: Normal Extremities: Abnormal Incision: Not Applicable Progress: Not Applicable Exam Comments: Fundus firm U-2 nontender. Lungs clear w/ heart RRR. Edema improved but significant bilateral edema remains. IMPRESSION/PLAN/PROCEDURES: [id number] Impression: Endometritis; Induced Hypertension Other Impression: Acute blood loss anemia Plan: Continue present management Progress Notes: Pt seen and examined. Doing better. Reports shortness of breath significantly improved. No chest pain. Last elevated temp of 100.4 @ 1607 this afternoon on Zosyn. Will continue IV Zosyn and anticipate d/c home tomorrow. BPs much improved w/ current regimen of Procardia XL 90mg daily and Labetalol 400mg BID. Significant diuresis w/ lasix 20mg IV x 1 dose earlier this AM. Will give another dose of lasix now. Anticipate d/c home tomorrow. Pt planning to stay with friend Cheryl upon discharge. All questions answered Signing Physician: Ruchi Bonner DO Copies: *Electronically Signed* 08/08/19 1842 RUCHI BONNER DO PATIENT NAME: MIMA MARCOS PROGRESS NOTE DATE OF : 90 PHYSICIAN: RUCHI BONNER DO RPT #: [id number] REPORT IS CONFIDENTIAL AND NOT TO BE RELEASED WITHOUT AUTHORIZATION [address] [place] [address] Signed ~ *Electronically Signed* 08/08/19 [facility] RUCHI BONNER DO PATIENT NAME: MIMA MARCOS PROGRESS NOTE DATE OF : 90 PHYSICIAN: RUCHI BONNER DO RPT #: [id number] REPORT IS CONFIDENTIAL AND NOT TO BE RELEASED WITHOUT AUTHORIZATION
--- NOTE | 2019-08-09 12:02 | PR ---
[facility] [address], [place] [address] Signed PP Progress Notes Datetime Report Generated by MARIELA: 08/09/2019 12:02 SUBJECTIVE: [id number] Pain: Within normal limits Pain Comments: Breast tenderness Nausea/Vomiting: Denies Flatus: Yes Bowel Movement: Yes Vital Signs: [id number] Vital Signs: Reviewed; Within Normal Limits Notable Details: Tmax 100.4. No severe range BPs. Last elevated temp 100.0 @ 0601 EXAM: [id number] Cardiovascular: Normal Respiratory: Normal Abdomen/Uterus: Normal Lochia: Normal Vulva/Perineum: Not Done Breasts: Not Done CVA Tenderness: Normal Extremities: Abnormal Incision: Not Applicable Progress: Not Applicable Exam Comments: Fundus firm U-2 nontender. Pt subjectively appears improved. Improved edema LE bilaterally IMPRESSION/PLAN/PROCEDURES: [id number] Impression: Endometritis; Induced Hypertension Other Impression: Acute blood loss anemia Plan: Discharge Progress Notes: Pt seen and examined. Pt reports that she is doing well and "I am leaving." Denies fevers, chills, nausea, vomiting, LAMA, RUQ pain, visual changes, chest pain, or shortness of breath. Reports that "I feel 100% better other than when I get a little warm when I sleep." Baby was discharged into foster care. Pt adamant that she will leave hospital today. Discussed hospital course including endometritis and sepsis with continued elevated temps. Recommended strongly that patient continue IVB abx and stay until at least 24 hr afebrile. Discussed risks of terminating care prematurely including return or worsening of sepsis, stroke, and . Pt understands these risks and insists on leaving regardless. Pts grandmother and RN were present for entire conversation. Discussed patient autonomy and ability to make choices regarding her health care, even if she chooses to pursue an unsafe *Electronically Signed* 08/09/19 120 RUCHI BONNER DO PATIENT NAME: MIMA MARCOS PROGRESS NOTE DATE OF : 90 PHYSICIAN: RUCHI BONNER DO RPT #: [id number] REPORT IS CONFIDENTIAL AND NOT TO BE RELEASED WITHOUT AUTHORIZATION [facility] [address], [place] [address] Signed course. Pt does agree to modified plan of care with oral abx but understands that this is not an ideal treatment. Pt agrees to take meds as prescribed, f/u in office in 2 days for BP check, and return to ED for evaluation if symptoms return. All questions answered to best of my ability and to patient's apparent understanding. Pt planning to enter inpatient treatment for substance abuse @ [facility]. Planning nexplanon for pp contraception Signing Physician: Ruchi Bonner DO Copies: ~ *Electronically Signed* 08/09/19 120 RUCHI BONNER DO PATIENT NAME: MIMA MARCOS PROGRESS NOTE DATE OF : 90 PHYSICIAN: RUCHI BONNER DO RPT #: [id number] REPORT IS CONFIDENTIAL AND NOT TO BE RELEASED WITHOUT AUTHORIZATION
== END 2019-08-09 12:15 | disposition home or self-care (01) | DRG 806 ==
LOC: FBCO 14:55 → FBC 14:56
PROVIDERS: ADMIT Obstetrics & Gynecology
PROC: 3E0P7VZ Introduction of Hormone into Female Reproductive, Via Natural or Artificial Opening (ICD-10-PCS; 2019-08-03)
PROC: 10E0XZZ Delivery of Products of Conception, External Approach (ICD-10-PCS; principal; 2019-08-04)
PROC: 0KQM0ZZ Repair Perineum Muscle, Open Approach (ICD-10-PCS; 2019-08-04)
PROC: 10H07YZ Insertion of Other Device into Products of Conception, Via Natural or Artificial Opening (ICD-10-PCS; 2019-08-04)
PROC: 00HU33Z Insertion of Infusion Device into Spinal Canal, Percutaneous Approach (ICD-10-PCS; 2019-08-04)
PROC: 3E0R3BZ Introduction of Anesthetic Agent into Spinal Canal, Percutaneous Approach (ICD-10-PCS; 2019-08-04)
PROC: 30233N1 Transfusion of Nonautologous Red Blood Cells into Peripheral Vein, Percutaneous Approach (ICD-10-PCS; 2019-08-06)
PROC: 3E0234Z Introduction of Serum, Toxoid and Vaccine into Muscle, Percutaneous Approach (ICD-10-PCS; 2019-08-09)
DX: O14.14 Severe pre-eclampsia complicating childbirth (principal); O41.03X0 Oligohydramnios, third trimester, not applicable or unspecified; Z37.0 Single live birth; D62 Acute posthemorrhagic anemia; E87.1 Hypo-osmolality and hyponatremia; N17.9 Acute kidney failure, unspecified; Z3A.39 39 weeks gestation of pregnancy; O76 Abnormality in fetal heart rate and rhythm complicating labor and delivery; O90.81 Anemia of the puerperium; O70.1 Second degree perineal laceration during delivery; Z23 Encounter for immunization; O72.1 Other immediate postpartum hemorrhage; O99.285 Endocrine, nutritional and metabolic diseases complicating the puerperium; O99.89 Other specified diseases and conditions complicating pregnancy, childbirth and the puerperium; O85 Puerperal sepsis; N71.9 Inflammatory disease of uterus, unspecified; O99.334 Smoking (tobacco) complicating childbirth; F17.210 Nicotine dependence, cigarettes, uncomplicated; O99.324 Drug use complicating childbirth; F15.90 Other stimulant use, unspecified, uncomplicated; O74.9 Complication of anesthesia during labor and delivery, unspecified; I95.2 Hypotension due to drugs; Z59.0 Homelessness
CPT/HCPCS: 36415; 36430; 71045; 71260; 76815; 80053; 80170; 81001; 82570; 82803; 83036; 83605; 83735; 83935; 84156; 84300; 84550; 85025; 86703; 86762; 86780; 86803; 86850; 86900; 86901; 86920; 87340; 87502; 90715; 93005; 93010; 93306; 99406; A9270; G0480; J0290; J0360; J1580; J1650; J1940; J2543; J2550; J2795; J3010; J3475; J3490; J7030; J7060; J7120; J7121; P9016; Q9967

== ENCOUNTER 2019-08-16 18:28 | Emergency (ER) | payer OTHER ==
[~2019-08-16] VITALS: Ht 165.1 cm; Wt 64.4 kg
[2019-08-16] MEDS ORDERED: AMOX TR-K CLV1 EAC1 PO (18:51)
[2019-08-16] MEDS ORDERED: LABETALOL HCL200 MG PO (18:52)
[2019-08-16] MEDS ORDERED: NIFEDIPINE ER90 MG PO (18:52)
[2019-08-16] MEDS ORDERED: IRON325 M1 PO (18:52)
[2019-08-16] MEDS ORDERED: IBUPROFEN800 MG PO (18:52)
[2019-08-16] MEDS ORDERED: ALL DAY ALLERGY10 MG PO (19:48)
== END 2019-08-16 19:57 | disposition home or self-care (01) ==
LOC: ED 18:28
DX: L27.0 Generalized skin eruption due to drugs and medicaments taken internally (principal); T36.0X5A Adverse effect of penicillins, initial encounter; F17.200 Nicotine dependence, unspecified, uncomplicated; Z79.899 Other long term (current) drug therapy
CPT/HCPCS: 99283